=== PATIENT | female | born 1980 | race American Indian/Alaskan Native ===

== ENCOUNTER 2018-12-03 13:59 | Emergency (ER) | payer SELFPAY ==
--- NOTE | 2018-12-03 14:29 | Emergency Department Report ---
Addendum entered and electronically signed by MIRNA MARINELLI NP 12/03/18 14:33: Blank Doc - Documentation Documentation: Ultrasound is at the providers discretion. Original Note: Blank Doc - Documentation Documentation: This is a 38-year-old female that presents with pelvic pain. Patient stated she is about 14 weeks . Denies any vaginal bleeding. Denies any other complaints. This initial assessment diagnostic orders/clinical plan/treatment(s) is/are subject to change based on patient's health status, clinical progression and re- assessment by fellow clinical providers in the ED. Further treatment and workup at subsequent clinical providers discretion. Patient/guardians urged not to elope from ED s their condition may be serious if not clinically assessed and managed. Initial orders include: 1-Patient sent to [facility] for further evaluation and treatment 2- labs 3- US OB
[2018-12-03 14:52] LABS: Basophils % (Auto) 0.2 % (0.0-1.8); Eosinophils # (Auto) 0.1 K/mm3 (0.0-0.4); Hematocrit 35.5 % (30.3-42.9); Hemoglobin 12.1 gm/dl (10.1-14.3); Lymphocytes # (Auto) 2.6 K/mm3 (1.2-5.4); Lymphocytes % (Auto) 30.3 % (13.4-35.0); Mean Corpuscular HGB Conc 34 % (30-34); Mean Corpuscular Volume 89 fl (79-97); Monocytes % (Auto) 11.1 % (0.0-7.3); Platelet Count 279 K/mm3 (140-440); Red Blood Count 3.97 M/mm3 (3.65-5.03); Red Cell Distribution Width 14.5 % (13.2-15.2)
[2018-12-03 14:59] LABS: Bacteria,Urine 1+ /HPF (Negative); Bilirubin,Urine NEG (Negative); Blood,Urine NEG (Negative); Color,Urine Yellow (Yellow); Mucus,Urine FEW /HPF; Protein,Urine <15 mg/dL mg/dL (Negative); Urobilinogen,Urine < 2.0 mg/dL (<2.0)
--- NOTE | 2018-12-03 19:03 | Emergency Department Report ---
ED Female HPI - General Chief complaint: Abdominal Pain Stated complaint: 14WKS /STOMACH PAIN Time Seen by Provider: 12/03/18 14:28 Source: patient Mode of arrival: Ambulatory Limitations: No Limitations - History of Present Illness Initial comments: 38-year-old female presents to the hospital with positive test of pain since last week. Pain described this feels like menstrual cramps that are intermittent and reoccurred today. She denies nausea, vomiting, vaginal discharge, vaginal bleeding, or dysuria. It is patient's third and she has one living child and history of one miscarriage. As per LMP 09/04/2018 she is 12 weeks and 6 days . She has not received any care or ultrasound during this . Patient does not have a credit counselor doctor but she states she called an office on [address] and attempt to schedule an appointment but she has not yet initiated care. She cannot recall the name of the [facility] office she contacted. - Related Data Previous Rx's Medication Instructions Recorded Last Taken Type Vit-Fe Fumar-FA [ 1 tab PO QDAY #30 tablet 12/03/18 Unknown Rx Vitamin] Allergies Allergy/AdvReac Type Severity Reaction Status Date / Time No Known Allergies Allergy Unverified 12/03/18 14:31 ED Review of Systems ROS: Stated complaint: 14WKS /STOMACH PAIN Other details as noted in HPI Comment: All other systems reviewed and negative ED Past Medical Hx - Past Medical History Previous Medical History?: No - Surgical History Past Surgical History?: No - Social History Smoking Status: Never Smoker Substance Use Type: None - Medications Home Medications: Home Medications Medication Instructions Recorded Confirmed Last Taken Type Vit-Fe Fumar-FA [ 1 tab PO QDAY #30 tablet 12/03/18 Unknown Rx Vitamin] ED Physical Exam - General Limitations: No Limitations - Other Other exam information: General: No limitations, patient is alert in no acute distress Head exam: Atraumatic, normocephalic Eyes exam: Normal appearance, pupils equal reactive to light, extraocular movements intact ENT: Moist mucous membrane Neck exam: Normal inspection, full range of motion, no meningismus nontender Respiratory exam: Clear to auscultation bilateral, no wheezes, rales, crackles Cardiovascular: Normal rate and rhythm, normal heart sounds Abdomen: Soft, nondistended, very mild suprapubic tenderness on exam, with normal bowel sounds, no rebound, or guarding Extremity: Full range of motion normal inspection no deformity Back: Normal Inspection, full range of motion, no tenderness Neurologic: Alert, oriented x3, cranial nerves intact, no motor or sensory deficit Psychiatric: normal affect, normal mood Skin: Warm, dry, intact ED Course Vital Signs 12/03/18 12/03/18 14:29 19:05 Temperature 98.1 F Pulse Rate 107 H 85 Respiratory 18 12 Rate Blood Pressure 134/73 Blood Pressure 123/67 [Left] O2 Sat by Pulse 100 100 Oximetry - Reevaluation(s) Reevaluation #1: 12/03/18 19:09 Repeat vital signs show heart rate in spontaneous improvement and initial documented tachycardia ED Medical Decision Making - Lab Data Result diagrams: 12/03/18 14:44 - Radiology Data Radiology results: report reviewed FINAL REPORT EXAM: US OB gt; = 14 WEEKS FETUS HISTORY: pelvic pain TECHNIQUE: Ultrasound obstetrical transabdominal PRIORS: None. FINDINGS: There is gestational sac within the uterus Single lies intrauterine gestation present in cephalic position. cardiac activity is present with heart rate of 147 beats per minute cervical length is 3.2 centimeters Placenta is grade 0 and posterior biometric measurements were obtained Biparietal diameter 14 weeks 1 day Head circumference 14 weeks 4 days Abdominal circumference 14 weeks 4 days Femur length 14 weeks 0 days based on today's exam estimated gestational age is 14 weeks 2 days with estimated date of delivery June 01, 2019 1.9 centimeter left ovarian cyst noted 1.0 centimeter right ovarian cyst noted. IMPRESSION: Single live intrauterine gestation estimated at 14 weeks 2 days - Medical Decision Making Labs are unremarkable. No signs of urine infection. Patient signed out to Dr. Dan to follow-up ultrasound and dispo as per result. - Differential Diagnosis ectopic, early Critical Care Time: No Critical care attestation.: If time is entered above; I have spent that time in minutes in the direct care of this critically ill patient, excluding procedure time. ED Disposition Clinical Impression: Qualifiers: Weeks of gestation: 14 weeks Qualified Code(s): Z3A.14 - 14 weeks gestation of Disposition: DC-01 TO HOME OR SELFCARE Is pt being admited?: No Condition: Stable Instructions: (ED) Additional Instructions: Please follow up with an [facility] in the next few days. I am starting you on vitamins. You can take Tylenol for your discomfort, using weight-based dosing. Otherwise do not take any other medications that are not prescribed by a physician. Return to the emergency Department with any worsening of your symptoms, development of vaginal bleeding, or with any acute distress. Prescriptions: Vit-Fe Fumar-FA [ Vitamin] 1 tab PO QDAY #30 tablet Referrals: [facility], [facility] [Provider Group] - 3-5 Days [facility] [Provider Group] - 3-5 Days [facility] [Provider Group] - 3-5 Days Time of Disposition: 20:00 (s/o to shear)
[2018-12-03 19:06] VITALS: BP 123/67
--- NOTE | 2018-12-03 21:04 | Ultrasound Report ---
FINAL REPORT EXAM: US OB > = 14 WEEKS FETUS HISTORY: pelvic pain TECHNIQUE: Ultrasound obstetrical transabdominal PRIORS: None. FINDINGS: There is gestational sac within the uterus Single lies intrauterine gestation present in cephalic position. cardiac activity is present wi th heart rate of 147 beats per minute cervical length is 3.2 centimeters Placenta is grade 0 and posterior biometric measurements were obtained Biparietal diameter 14 weeks 1 day Head circumference 14 weeks 4 days Abdominal circumference 14 weeks 4 days Femur length 14 weeks 0 days based on today's exam estimated gestational age is 14 weeks 2 days with estimated date of delivery June 01, 2019 1.9 centimeter left ovarian cyst noted 1.0 centimeter right ovarian cyst noted. IMPRESSION: Single live intrauterine gestation estimated at 14 weeks 2 days
== END 2018-12-03 21:12 | disposition home or self-care (01) ==
LOC: ED 13:59
DX: O26.891 Other specified pregnancy related conditions, first trimester (principal); R10.2 Pelvic and perineal pain; Z3A.14 14 weeks gestation of pregnancy
CPT/HCPCS: 36415; 76805; 81001; 84702; 85025